=== PATIENT | male | born 1935 | race Caucasian/White ===

== ENCOUNTER 2017-07-10 20:16 | Inpatient (IN) | payer MEDICAID, OTHER ==
[~2017-07-10] VITALS: Ht 154.9 cm; Wt 71.3 kg
[~2017-07-10 20:16] MED LIST: AMLO10TA2 PO; ASPI-869 PO; BENA40TA2 PO; GLIM4TAB3 PO; METO-304 PO; NITR0.4T SL; SIMV40TA5 PO; TAMS0.4C34 PO
--- NOTE | 2017-07-10 20:34 | NUR ---
ekg done, lab dmitriy,monitor shows nsr,po2=97% on 3l o2 vianasal cannula
[2017-07-10] MEDS ORDERED: AMLO10TA2 PO (20:47)
[2017-07-10] MEDS ORDERED: CLON0.2T PO (20:47)
[2017-07-10] MEDS ORDERED: CHOL500062 PO (20:47)
[2017-07-10] MEDS ORDERED: ZOLP5TAB8 PO (20:47)
[2017-07-10] MEDS ORDERED: FURO20TA4 PO (20:47)
[2017-07-10] MEDS ORDERED: METO-304 PO (20:47)
[2017-07-10] MEDS ORDERED: BENA40TA2 PO (20:47)
[2017-07-10] MEDS ORDERED: GLIM4TAB3 PO (20:47)
[2017-07-10] MEDS ORDERED: TAMS0.4C34 PO (20:47)
[2017-07-10] MEDS ORDERED: ATOR40TA PO (20:47)
[2017-07-10] MEDS ORDERED: ASPI-612 PO (20:47)
[2017-07-10] MEDS ORDERED: MECL-102 PO (20:47)
[2017-07-10 20:48] LABS: BASOPHILS % (AUTO) 0.2 % (0.0-2.0); EOSINOPHILS # (AUTO) 0.1 K/uL (0.0-0.7); EOSINOPHILS % (AUTO) 1.3 % (0.0-7.0); HEMATOCRIT 39.2 % (40-50); HEMOGLOBIN 12.8 G/DL (14.0-18.0); LYMPHOCYTES # (AUTO) 0.7 K/UL (0.8-4.8); LYMPHOCYTES % (AUTO) 9.8 % (20.5-51.5); MEAN CORPUSCULAR HEMOGLOBIN 26.3 UUG (27.0-31.0); MEAN CORPUSCULAR HGB CONC 33 g/dL (32.0-37.0); MEAN CORPUSCULAR VOLUME 80.6 FL (82.0-92.0); MONOCYTES # (AUTO) 0.5 K/UL (0.1-1.30); MONOCYTES % (AUTO) 6.7 % (0.0-11.0); NEUTROPHILS # (AUTO) 5.5 K/UL (1.8-8.9); PLATELET COUNT (AUTO) 218 K/UL (150-450); RED BLOOD CELL COUNT(AUTO) 4.86 MIL/UL (4.7-6.1); WHITE BLOOD COUNT (AUTO) 6.8 K/UL (4.0-11.2)
[2017-07-10 20:58] LABS: ALANINE AMINOTRANSFERASE 15 U/L (16-63); ALKALINE PHOSPHATASE 39 U/L (50-136); ASPARTATE AMINOTRANSFERASE 14 U/L (15-37); BILIRUBIN,TOTAL 0.2 mg/dL (0.2-1.0); CARBON DIOXIDE 22 mmol/L (21-32); CHLORIDE 104 mmol/L (98-107); CREATINE KINASE, TOTAL 97 U/L (39-308); CREATININE 1.6 mg/dL (0.6-1.3); GLUCOSE 242 mg/dL (74-106); POTASSIUM 4.5 mmol/L (3.5-5.1); TOTAL PROTEIN, SERUM 7.7 g/dL (6.4-8.2); UREA NITROGEN, BLOOD 36 mg/dL (7-18)
[2017-07-10] MEDS ORDERED: IV NORMAL SALINE 250 ML IV ONE (21:15)
[2017-07-10] MEDS ORDERED: ASPIRIN 325 MG TABLET PO ONE (21:15)
--- NOTE | 2017-07-10 21:17 | NUR ---
all md sana completed, mrsa-nares ordered sent,belongingas list done, 250ml infusing,monitor shows nsr,po2=96% on 3l o2 via nasal cannula,cp 0/10.
[2017-07-10] MEDS ORDERED: ASPIRIN 325 MG TABLET ONE (21:27)
[2017-07-10 21:53] LABS: *BILIRUBIN,URIN NEGATIVE (NEGATIVE); *BLOOD, URINE NEGATIVE (NEGATIVE); *CLARITY,URINE CLEAR (CLEAR); *COLOR,URINE YELLOW (YELLOW); *KETONES,URINE NEGATIVE (NEGATIVE); *PROTEIN,URINE NEGATIVE (NEGATIVE); *UROBILINOGEN,URINE 0.2 E.U./dl (NORMAL); LEUKOCYTE ESTERASE ,URINE NEGATIVE (NEGATIVE); NITRITE, URINE NEGATIVE (NEGATIVE); UGLUCOSE NEGATIVE (NEGATIVE)
[2017-07-10 22:03] LABS: BACTERIA,URINE NONE SEEN /HPF (NONE SEEN); RBC,URINE NONE SEEN /HPF (0-3); SQUAMOUS EPITHELIAL CELL,UR NONE SEEN /HPF (NONE SEEN); WBC,URINE 0-3 /HPF (0-3)
--- NOTE | 2017-07-10 22:24 | NUR ---
report called to 2nd floor given to everton sidhu. belongings list, admit order written.
--- NOTE | 2017-07-10 22:47 | NUR ---
BROUGHT IN TO FLOOR VIA GURNEY. ADMITTED TO TELE UNDER DR. ELIZALDE. DX: CHESTPAIN. NO C/O CHEST PAIN AT THIS TIME. INITIATE ADMISSION ASSESSMENT. WILL CALL FOR ORDERS.
[2017-07-10] MEDS ORDERED: INSULIN REGULAR, HUMAN 300 UNIT/3 ML VIAL SQ PRN (23:30)
[2017-07-10] MEDS ORDERED: ONDANSETRON 4 MG/2 ML VIAL IV PRN (23:30)
[2017-07-10] MEDS ORDERED: ZOLPIDEM 5 MG TABLET PO PRN (23:30)
[2017-07-10] MEDS ORDERED: HYDROCODONE/APAP 5-325MG TABLET PO PRN (23:30)
[2017-07-10] MEDS ORDERED: DEXTROSE 50% 50 ML DISP.SYRIN IV PRN (23:30)
[2017-07-10] MEDS ORDERED: ACETAMINOPHEN 325 MG TABLET PO PRN (23:30)
[2017-07-11] VITALS: BP 129/52
[2017-07-11 04:00] VITALS: BP 151/54
--- NOTE | 2017-07-11 05:22 | NUR ---
SLEPT INTERMITTENTLY. DENIES CHEST PAIN AT THIS TIME. SPEAKS BOLIVIAN WITH CONFERENCE SERVICE COORDINATOR. SINUS RYTHYM ON TELE WITH BUNDLE BRANCH. HR [id number]
[2017-07-11 06:32] LABS: BASOPHILS # (AUTO) 0.1 K/uL (0.0-8.0); BASOPHILS % (AUTO) 0.9 % (0.0-2.0); EOSINOPHILS # (AUTO) 0.2 K/uL (0.0-0.7); EOSINOPHILS % (AUTO) 3.4 % (0.0-7.0); HEMOGLOBIN 14.2 G/DL (14.0-18.0); LYMPHOCYTES # (AUTO) 1.4 K/UL (0.8-4.8); LYMPHOCYTES % (AUTO) 22.4 % (20.5-51.5); MEAN CORPUSCULAR HEMOGLOBIN 27.7 UUG (27.0-31.0); MEAN CORPUSCULAR HGB CONC 34 g/dL (32.0-37.0); MEAN CORPUSCULAR VOLUME 81.6 FL (82.0-92.0); MONOCYTES # (AUTO) 0.4 K/UL (0.1-1.30); MONOCYTES % (AUTO) 7.2 % (0.0-11.0); NEUTROPHILS % (AUTO) 66.1 % (38.5-71.5); PLATELET COUNT (AUTO) 209 K/UL (150-450); RED BLOOD CELL COUNT(AUTO) 5.15 MIL/UL (4.7-6.1); WHITE BLOOD COUNT (AUTO) 6.1 K/UL (4.0-11.2)
[2017-07-11] MEDS: BLOOD SUGAR DIAGNOSTIC 1 EACH STRIP VI SCH ×2 (06:37→11:57)
[2017-07-11 07:04] LABS: THYROID STIMULATING HORMONE 1.147 mIU/mL (0.358-3.740)
[2017-07-11 07:11] LABS: IRON, SERUM 49 ug/dL (50-175)
[2017-07-11 07:15] LABS: ALANINE AMINOTRANSFERASE 16 U/L (16-63); ALKALINE PHOSPHATASE 41 U/L (50-136); ASPARTATE AMINOTRANSFERASE 9 U/L (15-37); BILIRUBIN,TOTAL 0.3 mg/dL (0.2-1.0); CARBON DIOXIDE 26 mmol/L (21-32); CHLORIDE 106 mmol/L (98-107); CHOLESTEROL 270 mg/dL (<200); CREATININE 1.4 mg/dL (0.6-1.3); GLUCOSE 123 mg/dL (74-106); HDL CHOLESTEROL 36 mg/dL (40-60); MAGNESIUM 2.2 mg/dL (1.8-2.4); PHOSPHOROUS 3.4 mg/dL (2.5-4.9); POTASSIUM 4.6 mmol/L (3.5-5.1); TOTAL PROTEIN, SERUM 8.1 g/dL (6.4-8.2); TRIGLYCERIDES 140 MG/DL (30-150); UREA NITROGEN, BLOOD 29 mg/dL (7-18)
--- NOTE | 2017-07-11 07:25 | NUR ---
RECEIVED REPORT FROM EXHIBITS COORDINATOR NURSE, PATIENT IN BED AWAKE, NO EVIDENCE OF DISTRESS NOTED. PATIENT DENIED PAIN OR DISCOMFORT. BED IN LOW POSITION, SIDE RAILS UP X2
[2017-07-11] MEDS ORDERED: PANTOPRAZOLE SODIUM 40 MG TABLET.DR PO SCH (07:37)
[2017-07-11] MEDS ORDERED: GLIMEPIRIDE 4 MG TABLET PO SCH (08:00)
[2017-07-11] MEDS ORDERED: CLONIDINE HCL 0.2 MG TABLET PO SCH (09:00)
[2017-07-11] MEDS ORDERED: MECLIZINE HCL 25 MG TABLET PO SCH (09:00)
[2017-07-11] MEDS ORDERED: CHOLECALCIFEROL 1,000 UNIT TABLET PO SCH (09:00)
[2017-07-11] MEDS ORDERED: AMLODIPINE 10 MG TABLET PO SCH (09:00)
[2017-07-11] MEDS ORDERED: ASPIRIN 325 MG TABLET PO SCH (09:00)
[2017-07-11] MEDS ORDERED: METOPROLOL SUCCINATE XL 50 MG TAB.SR.24H PO SCH (09:00)
[2017-07-11 11:34] VITALS: BP 139/58
[2017-07-11 15:36] VITALS: BP 152/59
--- NOTE | 2017-07-11 16:00 | NUR ---
PATIENT EDUCATION PROVIDED, IV SITE REMOVED, AND ALL DISCHARGE PAPERWORK REVIEWED WITH PATIENT. PATIENT IS IN STABLE CONDITION, NO EVIDENCE OF DISTRESS NOTED.
--- NOTE | 2017-07-11 16:29 | NUR ---
PATIENT WAS TAKEN DOWN TO DISCHARGE WITH WHEELCHAIR TO MEET SON.
[2017-07-11] MEDS ORDERED: ATORVASTATIN 40 MG TABLET PO SCH (21:00)
[2017-07-11] MEDS ORDERED: TAMSULOSIN HCL 0.4 MG CAP.SR.24H PO SCH (21:00)
[2017-07-11] MEDS ORDERED: DOCUSATE SODIUM 100 MG CAPSULE PO SCH (21:00)
== END 2017-07-11 16:30 | disposition home or self-care (01) | DRG 198 ==
LOC: ER 20:18 → TELE 22:30
PROVIDERS: ADMIT Internal Medicine; ATTEND Internal Medicine
DX: I25.119 Atherosclerotic heart disease of native coronary artery with unspecified angina pectoris (principal); N17.0 Acute kidney failure with tubular necrosis; I13.0 Hypertensive heart and chronic kidney disease with heart failure and stage 1 through stage 4 chronic kidney disease, or unspecified chronic kidney disease; I50.9 Heart failure, unspecified; N18.9 Chronic kidney disease, unspecified; D50.9 Iron deficiency anemia, unspecified; E11.22 Type 2 diabetes mellitus with diabetic chronic kidney disease; E66.9 Obesity, unspecified; E78.5 Hyperlipidemia, unspecified; I16.0 Hypertensive urgency; Z79.84 Long term (current) use of oral hypoglycemic drugs; Z87.891 Personal history of nicotine dependence; Z95.1 Presence of aortocoronary bypass graft; Z95.2 Presence of prosthetic heart valve; R19.5 Other fecal abnormalities; N40.0 Benign prostatic hyperplasia without lower urinary tract symptoms; Z68.29 Body mass index [BMI] 29.0-29.9, adult; E11.65 Type 2 diabetes mellitus with hyperglycemia; I44.7 Left bundle-branch block, unspecified
CPT/HCPCS: 36415; 70030-TC; 71010; 83550; 83735; 84100; 84443; 85025; 85610; 87040; 93005; 93307; A4663; J1815; J7050; J8597

== ENCOUNTER 2021-09-21 18:30 | Emergency (ER) | payer MEDICAID, OTHER ==
[~2021-09-21] VITALS: Ht 170.2 cm; Wt 59.0 kg
[~2021-09-21 18:30] MED LIST changes: -AMLO10TA2 PO; +AMLO10TA59 PO; +ASPI-612 PO; -ASPI-869 PO; +ATOR40TA PO; -BENA40TA2 PO; +BENA40TA8 PO; +CHOL500062 PO; +CLON0.2T PO; +FURO20TA4 PO; -GLIM4TAB3 PO; +GLIM4TAB37 PO; +MECL-159 PO; -METO-304 PO; +METO-357 PO; -NITR0.4T SL; -SIMV40TA5 PO; +ZOLP5TAB8 PO
--- NOTE | 2021-09-21 18:35 | NUR ---
No information available about current home medications.
--- NOTE | 2021-09-21 19:06 | NUR ---
PT IS IN ROOM #2B. DR FOWLER EVALUATED THE PT.
[2021-09-21] MEDS ORDERED: DILTIAZEM HCL 25 MG IV IV ONE ×2 (19:15→21:45)
[2021-09-21] MEDS ORDERED: DILTIAZEM HCL 25 MG IV ONE ×2 (19:22→21:54)
[2021-09-21 19:27] LABS: HEMATOCRIT 44.1 % (36.7-47.1); MEAN CORPUSCULAR HEMOGLOBIN 27.6 uug (23.8-33.4); MEAN CORPUSCULAR VOLUME 83.5 fL (73.0-96.2); PLATELET COUNT (AUTO) 337 K/uL (152-348)
--- NOTE | 2021-09-21 19:29 | NUR ---
DR. FOWLER SPEAKING WITH DAUGHTER
--- NOTE | 2021-09-21 19:38 | NUR ---
SPOKE WITH DAUGHTER SHAGUFTA, GAVE VERBAL CONSENT FOR CTA, STATED TO DO WHATEVER IS NEEDED FOR TREATMENT
--- NOTE | 2021-09-21 19:40 | NUR ---
DAUGHTER STATES SHE WANTS PT TO BE FULL CODE
[2021-09-21 19:44] LABS: ALANINE AMINOTRANSFERASE 15 U/L (16-63); ALKALINE PHOSPHATASE 51 U/L (50-136); ASPARTATE AMINOTRANSFERASE 47 U/L (15-37); BILIRUBIN,DIRECT 0.1 mg/dL (0.0-0.2); BILIRUBIN,TOTAL 0.3 mg/dL (0.2-1.0); CARBON DIOXIDE 25 mmol/L (21-32); CHLORIDE 101 mmol/L (98-107); CREATININE 1.7 mg/dL (0.6-1.3); POTASSIUM 4.8 mmol/L (3.5-5.1); TOTAL PROTEIN, SERUM 8.4 g/dL (6.4-8.2); UREA NITROGEN, BLOOD 28 mg/dL (7-18)
--- NOTE | 2021-09-21 19:44 | NUR ---
PT IS NOT VACCINATED FOR COVID PER DAUGHTER
[2021-09-21 19:46] LABS: ETHANOL < 3 MG/DL (0-0)
[2021-09-21] MEDS ORDERED: IOHEXOL 350 100 ML INFUS..BTL ONE (19:49)
[2021-09-21] MEDS ORDERED: IV NORMAL SALINE 250 ML IV ONE (19:49)
[2021-09-21] MEDS ORDERED: SWABABLE VALVE TRANSFER SET EA MC ONE (19:49)
[2021-09-21 19:52] LABS: GLUCOSE 363 mg/dL (74-106)
--- NOTE | 2021-09-21 19:58 | NUR ---
Lab called with critical BG of 363 and a covid + result. EDMD notified and acknowledged critical value and covid result.
--- NOTE | 2021-09-21 20:08 | NUR ---
Lab called with more critical values LA; 2.5, Trop: 0.0452. EDMD informed and acknowledged results.
[2021-09-21 20:09] LABS: THYROID STIMULATING HORMONE 0.559 mIU/mL (0.358-3.740)
--- NOTE | 2021-09-21 20:11 | NUR ---
accompanied pt with milk collector down to ct
--- NOTE | 2021-09-21 20:11 | NUR ---
pt on automatic brine mixer operator while down at CT
--- NOTE | 2021-09-21 20:13 | NUR ---
Rosa Isela RN notified Dr. Bird of critical values, glucose, troponin, lactic acid and coivd positive
--- NOTE | 2021-09-21 21:02 | NUR ---
Called [facility], Spoke to Anna who requested facesheet to be faxed to .
--- NOTE | 2021-09-21 21:16 | NUR ---
Dr Bird spoke to Dr Nuñez for neuo interventionalist consult.
--- NOTE | 2021-09-21 22:11 | NUR ---
Spoke with romero churchill, to give updates, contact number [phone]
--- NOTE | 2021-09-21 22:26 | NUR ---
called [facility] for panel call, melyssa youssef [employer] assistant was paged
--- NOTE | 2021-09-21 22:31 | NUR ---
Lab just called to report a LA of 2.8, EDMD informed and acknowledged.
--- NOTE | 2021-09-21 22:40 | NUR ---
Called [facility] , spoke to Indu who states no beds available at this time.
--- NOTE | 2021-09-21 22:50 | NUR ---
Telemed request sent, robot at bedside
--- NOTE | 2021-09-21 23:23 | NUR ---
Called [facility] , spoke to Miroslava who requested facesheet and ct scan result to be faxed to .
--- NOTE | 2021-09-22 00:09 | NUR ---
Called [facility] who states no ALS unit available.
--- NOTE | 2021-09-22 00:10 | NUR ---
Called [facility] to transfer patient to [facility] but has no ALS unit available.
--- NOTE | 2021-09-22 00:11 | NUR ---
Called [facility] to transportpatient to [facility] but has no ALS units available.
--- NOTE | 2021-09-22 00:29 | NUR ---
dr. garcia speaking with dr. andrews from [place]
--- NOTE | 2021-09-22 01:58 | NUR ---
Called [facility] , spoke to Jossy who will send ALS unit with ETA of [phone].
--- NOTE | 2021-09-22 02:03 | NUR ---
Called [facility] who has no available ALS in the area.
--- NOTE | 2021-09-22 02:03 | NUR ---
Called [facility] for transportation, none available at the time
[2021-09-22] MEDS ORDERED: DILTIAZEM HCL IV 125 MG in IV NORMAL SALINE 100 ML IV PRN (06:45)
[2021-09-22 06:58] VITALS: BP 159/140
[2021-09-22] MEDS ORDERED: DILTIAZEM HCL 25 MG IV IV ONE (07:00)
[2021-09-22] MEDS ORDERED: DILTIAZEM HCL 25 MG IV ONE (07:02)
--- NOTE | 2021-09-22 07:12 | NUR ---
Handoff report given to ayad sidhu
--- NOTE | 2021-09-22 07:30 | NUR ---
Pt is awake, VSS, awaiting for ambulance for [place].
--- NOTE | 2021-09-22 08:30 | NUR ---
Incontinance care given, pt able to minnimaly assisst.
--- NOTE | 2021-09-22 09:07 | NUR ---
Report given to [facility] transprters, pt left ER via gurney. All belongings sent w/ pt.
== END 2021-09-22 09:08 | disposition short-term general hospital (02) ==
LOC: ER 18:40
DX: I63.111 Cerebral infarction due to embolism of right vertebral artery (principal); R47.01 Aphasia; R29.706 NIHSS score 6; U07.1 COVID-19; I10 Essential (primary) hypertension; Z95.1 Presence of aortocoronary bypass graft; Z95.2 Presence of prosthetic heart valve; Z79.82 Long term (current) use of aspirin; Z79.899 Other long term (current) drug therapy; I48.91 Unspecified atrial fibrillation; R35.0 Frequency of micturition; Z79.84 Long term (current) use of oral hypoglycemic drugs; E11.65 Type 2 diabetes mellitus with hyperglycemia; R77.8 Other specified abnormalities of plasma proteins; N28.9 Disorder of kidney and ureter, unspecified
CPT/HCPCS: 36415; 70450; 70496; 70498; 71045; 80048; 80076; 80320; 82140; 82962; 83605 ×2; 84443; 84484; 85025; 85730; 87040 ×2; 87426; 93005; 96374; 96376 ×2; 99291; J3490 ×3; Q9967; 70030-TC; A4663; G0480; J7050